=== PATIENT | male | born 1985 | race Asian ===

== ENCOUNTER 2018-07-18 09:56 | Day surgery (SDC) | payer OTHER ==
[~2018-07-18] VITALS: Ht 172.7 cm; Wt 85.5 kg
[2018-07-18] VITALS (11 sets, daily range): BP systolic 118–139; BP diastolic 79–97; PULSE 80–96; RESP 14–16; Ht 172.7 cm; Wt 85.5 kg
[~2018-07-18 09:56] MED LIST: CEFAZOLIN 2 GM/50 ML (PMX) 50 ML IVPB ONE; CEFAZOLIN 2 GM/50 ML (PMX) 50 ML IVPB SCH; LIDOCAINE 2% (SDV) 5 ML INJ ONE; SEVOFLURANE 15 MIN ONE; SOD CHLORIDE 0.9% 1,000 ML IV SCH
--- NOTE | 2018-07-18 10:23 | PREAC ---
Date/Time of Note Date/Time of Note DATE: 07/18/18 TIME: 10:22 Anesthesia Eval and Record Evaluation Time Pre-Procedure Interview DATE: 07/18/18 TIME: 10:22 Age 32 Sex male NPO: 8 hrs Preoperative diagnosis Mass on left upper forehead Planned procedure EXCISION OF SUBCUTANEOUS LEFT UPPER Past Medical History Past Medical History: Includes Recreational drugs: Marijuana Surgery & Anesthesia Issues No known issue Meds Anticoagulation: No Beta Brett within 24 hr: No Reason Beta Brett not given: Pt. not on B-Brett Current Medications Cefazolin Sodium/ Dextrose 50 ml @ 100 mls/hr PREOP IVPB ; Start 07/18/18 at 06:00; Stop 07/18/18 at 18:00 Sodium Chloride 1,000 ml @ 75 mls/hr [id number] IV ; Start 07/18/18 at 06:00; Stop 07/18/18 at 18:00 Meds reviewed: Yes Allergies Coded Allergies: No Known Drug Allergies (Unverified Allergy, Unknown, 06/15/18) Allergies Reviewed: Yes Labs/Studies Labs Reviewed: Reviewed by anesthesiologist test: N/A Pre-procedure Exam Airway: Adequate mouth opening Mallampati: Mallampati I Teeth: Normal Lung: Normal Heart: Normal ASA Physical Status ASA physical status: 2 Emergency: None Planned Anesthetic General/MAC: ETT Pre-operative Attestations Prior to commencing anesthesia and surgery, the patient was re-evaluated, there was verification of: *The patient's identity *The results of appropriate recent lab work and preoperative vital signs *The above evaluation not changing prior to induction *Anesthetic plan, risk benefits, alternative and complications discussed with patient/family; questions answered; patient/family understands, accepts and wishes to proceed. ANURAG ROSEN July 18, 2018 10:23
[2018-07-18] MEDS ORDERED: METOCLOPRAMIDE 10 MG INJ IV PRN (10:30)
[2018-07-18] MEDS ORDERED: FENTAnyl 50 MCG/ML VIAL IV PRN ×2 (10:30)
[2018-07-18] MEDS ORDERED: MEPERIDINE 25 MG INJ IV PRN (10:30)
[2018-07-18] MEDS ORDERED: hydrALAzine 20 MG INJ IV PRN (10:30)
[2018-07-18] MEDS ORDERED: LABETALOL HCL 20MG INJ IV PRN (10:30)
[2018-07-18] MEDS ORDERED: ONDANSETRON 4 MG INJ IV PRN ×2 (10:30→14:30)
[2018-07-18] MEDS ORDERED: HYDROmorphONE 1 MG/5 ML IV SYRINGE IV PRN ×2 (10:30)
[2018-07-18] MEDS ORDERED: MIDAZOLAM 1 MG/ML 2 ML INJ ONE (11:55)
[2018-07-18] MEDS ORDERED: ROCURONIUM 50 MG INJ ONE (11:55)
[2018-07-18] MEDS ORDERED: PROPOFOL 100 ML ONE (11:55)
[2018-07-18] MEDS ORDERED: ONDANSETRON 4 MG INJ ONE (11:55)
[2018-07-18] MEDS ORDERED: DEXAMETHASONE 4 MG/ML 5 ML INJ ONE (11:55)
[2018-07-18] MEDS ORDERED: FENTAnyl 50 MCG/ML VIAL ONE (11:55)
[2018-07-18] MEDS ORDERED: CEFAZOLIN 1 GM INJ ONE (11:55)
[2018-07-18] MEDS ORDERED: SUGAMMADEX SODIUM 200 MG/2 ML VIAL IV ONE (11:56)
[2018-07-18] MEDS ORDERED: BUPIVACAINE 0.25%/EPI (SDV) 30 ML INJ ONE (13:17)
--- NOTE | 2018-07-18 14:16 | SIPON ---
Date/Time of Note Date/Time of Note DATE: 07/18/18 TIME: 14:12 Operative Report Preoperative Diagnosis Subcutaneous mass left upper forehead. Postoperative Diagnosis The same. Operation/Procedure Performed Excision of the mass left upper forehead subcutaneous. Surgeon see signature line community assistant None. Second assist: A Anesthesia: general Estimated blood loss: none Transfusion Required none Specimen The specimen which was subcutaneous mass with a piece of elliptical shape of the skin attached to it was sent for pathology evaluation. Grafts/Implants none Complications none RAJIV AGUILAR MD July 18, 2018 14:16
[2018-07-18] MEDS ORDERED: SOD CHLORIDE 0.9% 1,000 ML IV SCH (14:17)
[2018-07-18] MEDS ORDERED: LACTATED RINGER'S 1,000 ML IV SCH (14:17)
--- NOTE | 2018-07-18 14:21 | PAC ---
Date/Time of Note Date/Time of Note DATE: 07/18/18 TIME: 14:20 Post-Anesthesia Notes Post-Anesthesia Note Last documented vital signs Vital Signs Date Temp Pulse Resp B/P (MAP) Pulse Ox O2 O2 Flow FiO2 Time Delivery Rate 07/18/18 97.3 83 16 123/84 98 Room Air 10:41 (97) Activity: WNL Respiratory function: WNL Cardiovascular function: WNL Mental status: Baseline Pain reasonably controlled: Yes Hydration appropriate: Yes Nausea/Vomiting absent: Yes ANURAG ROSEN July 18, 2018 14:21
[2018-07-18] MEDS ORDERED: HYDROCODONE/APAP (5/325) TAB PO PRN (14:30)
--- NOTE | 2018-07-18 14:58 | OPR ---
DATE OF OPERATION: 07/18/2018 SURGEON: Carlos Miller MD CONSERVATION WORKER: None. ANESTHESIA: General and local. ANESTHESIOLOGIST: Tacos Malik CRNA PREOPERATIVE DIAGNOSIS: Subcutaneous mass, left upper forehead. POSTOPERATIVE DIAGNOSIS: Subcutaneous mass, left upper forehead, pending pathology report. PROCEDURE: Excision of the mass along with ellipse of skin attached to the mass. COMPLICATIONS: None. SPECIMEN: Yes, was sent for pathologic evaluation. INDICATION: This is a 32-year-old gentleman who presented to the office complaining of presence of a mass in the left forehead which has been increasing recently more than it has been increasing in the past 2 years and it bothers him. On physical examination, there was 3 x 2 cm x 2 cm mass subcutaneo usly attached to the bone. The patient was informed that we can remove it for him, but there is gricelda g to be scar formation at least the size of the mass and he accepted that, so we scheduled that and t shasha, the patient is here for operation. PROCEDURE IN DETAILS: The patient was taken to the operating room, was placed on operating table in supine position. Anesthesia was induced by the anesthesiologist. A 2 grams of antibiotic Ancef IV w as given to the patient. Time-out was called. The patient was identified. Site of operation was id entified. The area was prepped with Betadine and draped in a sterile fashion. All through the opera tion, a solution of 0.5% Marcaine with epinephrine was used for local hemostasis. After injecting ab out 10 mL of the Marcaine anesthetic all around the mass area, an elliptical skin incision was made a bout 3 cm long and about 8 mm wide, carried down through subcutaneous tissue of the mass, which had t he capsule. It was firmly adherent to the skin, gradually from the overlying skin with cau asiya and sharp dissection, eventually proceeds to periphery and edge of the mass. Marcaine was injec christina underneath and lifted up and using electrocautery, dissection continued and lifting up and removi ng and the mass from the skull bone, eventually completely and was oriented and sent for pathologic evaluation. Hemostasis was achieved for approximation. Local flap advancement w as performed. Then, closure started in 2 layers, deep dermal layer approximated with #4-0 Vicryl int errupted sutures were used and the skin was closed with 4-0 Monocryl subcutaneous closure subcuticula r was performed. At the end, Dermabond was applied over the wound incision line and then covered wit h Telfa and sponges and taped to the forehead. The patient tolerated procedure well. Sponge, needle and instrument count reported were correct x2. Estimated blood loss was nil. The patient was extub ated, transferred to recovery room in stable condition. Dictated By: CARLOS SAMS/NATALY Conf#: [id number] DID#: [id number]
== END 2018-07-18 15:36 | disposition home or self-care (01) ==
LOC: SDS 09:56
DX: D17.0 Benign lipomatous neoplasm of skin and subcutaneous tissue of head, face and neck (principal)
CPT/HCPCS: 11443; 12052; 88307; J0690; J1100; J2250; J2405; J3010; Z7512; Z7610